=== PATIENT | male | born 1940 | race Two or more races ===

== ENCOUNTER 2018-06-02 08:10 | Day surgery (SDC) | payer MEDICARE, BC ==
[~2018-06-02] VITALS: Ht 167.6 cm; Wt 74.8 kg
[2018-06-02] VITALS (9 sets, daily range): BP systolic 104–140; BP diastolic 47–74
[~2018-06-02 08:10] MED LIST: ASPIR 8181 MG ORAL; LR 1000ml 1,000 ML IVLG SCH
--- NOTE | 2018-06-02 08:28 | Short Stay Surgery H&P ---
History of Present Illness History of Present Illness Chief Complaint Screening colonoscopy MANI Foote is a 77 year old male who was admitted on for Screening Colonoscopy Patient History Allergies: Coded Allergies: IODINATED CONTRAST MEDIA - IV DYE (Verified Allergy, Severe, HOT, RASH, ) HAPPENED DURING AN MRI 3 YEARS AGO AT [facility] PAST MEDICAL HISTORY: (1) Diverticulosis (2) Prostate CA Medication History Scheduled Aspirin* (Aspir 81*), 81 MG ORAL THREE TIMES A WEEK, (Reported) Review of Systems Cardiovascular: Reports: no symptoms Respiratory: Reports: no symptoms Skeletal: Reports: no symptoms Gastrointestinal: Reports: no symptoms Genitourinary: Reports: no symptoms Neurologic: Reports: no symptoms Endocrine: Reports: no symptoms Hematologic: Reports: no symptoms Physical Exam Skin: normal HENT: normal Heart: normal Lungs: normal Abdomen: normal Extremities: normal Genitourinary: normal Plan Plan of Care Total colonoscopy Preop Interventions none Summary of Findings see the report Attestation Are the patient's medical conditions optimized for surgery? Attestation Response: yes Renée Roman MD Jun 02, 2018 08:28
--- NOTE | 2018-06-02 08:29 | Pre-Procedure Note/Attestation ---
Pre-Procedure Note/Attestation Complete Prior to Procedure Planned Procedure: left Procedure Narrative: Examination of the colon via colonoscopy fro cancer/polyps Indications for Procedure Pre-Operative Diagnosis: R/O colon polyp/cancer Attestation I attest that I discussed the nature of the procedure; its benefits; risks and complications; and alternatives (and the risks and benefits of such alternatives ), prior to the procedure, with the patient (or the patient's legal sales representative metals). I attest that, if there was a reasonable possibility of needing a blood transfusion, the patient (or the patient's legal sales representative metals) was given the [facility] standardized written summary, pursuant to the [employer] Blood Safety Act ([place] Health and Safety Code # 1645, as amended). I attest that I re-evaluated the patient just prior to the surgery and that there has been no change in the patient's H&P, except as documented below: Renée Roman MD Jun 02, 2018 08:29
--- NOTE | 2018-06-02 08:36 | Anethesia Preoperative Eval ---
Anesthesia Pre-op PMH/ROS General Date of Evaluation: Jun 02, 2018 Time of Evaluation: 08:33 Anesthesiologist: Lizett Tello CRNA ASA Score: ASA 3 Mallampati Score Class I : Soft palate, uvula, fauces, pillars visible Class II: Soft palate, uvula, fauces visible Class III: Soft palate, base of uvula visible Class IV: Only hard plate visible Mallampati Classification: Class III Surgeon: Isaias Diagnosis: Abdominal pain Surgical Procedure: Diagnostic colonoscopy Anesthesia History: none Social History: smoking Family History: no anesthesia problems Allergies: Coded Allergies: IODINATED CONTRAST MEDIA - IV DYE (Verified Allergy, Severe, HOT, RASH, ) HAPPENED DURING AN MRI 3 YEARS AGO AT [facility] Medications: see eMAR Patient NPO?: Yes NPO Date: Jun 02, 2018 NPO Time: 00:00 Past Medical History Cardiovascular: Reports: HTN; Denies: CAD, [place], valve dz, arrhythmia, other Pulmonary: Denies: asthma, COPD, ANNETTE, other Gastrointestinal/Genitourinary: Reports: other - Prostate cancer s/p prostatectomy; Denies: GERD, CRI, ESRD Neurologic/Psychiatric: Denies: dementia, CVA, depression/anxiety, TIA, other Endocrine: Reports: DM; Denies: hypothyroidism, steroids, other HEENT: Denies: cataract (L), cataract (R), glaucoma, [place] (L), [place] (R), other Hematology/Immune: Reports: other - chronic lower back pain; Denies: anemia, DVT, bleeding disorder Musculoskeletal/Integumentary: Denies: OA, RA, DJD, DDD, edema, other PMH Narrative: as above PSxH Narrative: lumbar surgery, prostatectomy Anesthesia Pre-op Phys. Exam Physician Exam see chart Constitutional: NAD Neurologic: CN 2-12 intact Cardiovascular: RRR Respiratory: CTA Gastrointestinal: S/NT/ND Airway Exam Mallampati Score: Class III MO: full Neck: no limitations TMD: > 3 FB ROM: full Teeth: intact Dentures: no upper, no lower Anesthesia Pre-op A/P Risk Assessment & Plan Assessment: ASA 3, ok to proceed Plan: MAC Status Change Before Surgery: No Pre-Antibiotics Given Within 1 Hr of Incision: Lizett Souza CRNA Jun 02, 2018 08:36
[2018-06-02] MEDS ORDERED: PLAVIX75 MG ORAL (08:54)
[2018-06-02] MEDS ORDERED: Lidocaine 1% MPF 10mg/ml 5ml ONE (09:00)
[2018-06-02] MEDS ORDERED: LR 1000ml ONE (09:00)
[2018-06-02] MEDS ORDERED: Propofol 200mg/20ml IV ONE (09:00)
--- NOTE | 2018-06-02 09:29 | Endoscopy Procedure Note ---
Endoscopy Procedure Note General Indication for Procedure: Screening colon Procedures Performed: colonoscopy - Left colonic diverticulosis otherwise completely normal total colonoscopy. Specimen: none Pt Tolerated Procedure Well: Yes Estimated Blood Loss: none Anesthesia Anesthesiologist: Ms. Omer JASMINE Anesthesia: moderate sedation Medications Medication Given: see anesthesia record Inserted Devices Implant(s) used?: No Quality Quality of Bowel Preparation: Excellent Did scope reach the cecum?: Yes Was there any complications?: No GI Core Measures 50 yrs or older w/o bx or poly: Yes 10yrs. F/U not recommended: Yes 10 yrs. F/U needed: Yes 18 years or older w/prev. colo: No <3yrs. since last colonoscopy: No Med reason:<3 yrs.: System Reason:<3 yrs.: Last colonoscopy >= to 3yrs: Yes Renée Roman MD Jun 02, 2018 09:29
--- NOTE | 2018-06-02 09:30 | Discharge Instructions ---
Discharge Instructions Discharge Instructions Follow up with: No office follow up needed. doctor will speak with family For Congestive Heart Failure Reminder Report to your physician any weight gain of 5 pounds or more in one week. Renée Roman MD Jun 02, 2018 09:30
--- NOTE | 2018-06-02 09:42 | Immediate Post-Op Evaluation ---
Immediate Post-Op Evalulation Immediate Post-Op Evalulation Procedure: Diagnostic Colonoscopy Date of Evaluation: Jun 02, 2018 Time of Evaluation: 09:33 IV Fluids: LR 300 ml Blood Pressure Systolic: 125 Blood Pressure Diastolic: 68 Pulse Rate: 67 Respiratory Rate: 23 O2 Sat by Pulse Oximetry: 98 Temperature (Fahrenheit): 98.4 Pain Score (1-10): 0 Nausea: No Vomiting: No Complications none Patient Status: awake, patent Hydration Status: adequate Given Within 1 Hr of Incision: Lizett Souza CRNA Jun 02, 2018 09:42
--- NOTE | 2018-06-02 11:01 | 48 Hour Post Anesthesia Eval ---
Post Anesthesia Evaluation Procedure: Diagnostic Colonoscopy Date of Evaluation: Jun 02, 2018 Time of Evaluation: 11:00 Blood Pressure Systolic: 131 0: 70 Pulse Rate: 61 Respiratory Rate: 16 Temperature (Fahrenheit): 98. O2 Sat by Pulse Oximetry: 96 Airway: patent Nausea: No Vomiting: No Pain Intensity: 0 Hydration Status: adequate Cardiopulmonary Status: stable Mental Status/LOC: patient returned to baseline Follow-up Care/Observations: per GI Post-Anesthesia Complications: none Follow-up care needed: ready to discharge Lizett Tello CRNA Jun 02, 2018 11:01
--- NOTE | 2018-06-02 15:15 | Operative Note - Dictated ---
DATE OF OPERATION: 06/02/2018 SURGEON: Renée Roman M.D. PROCEDURE: Total colonoscopy PREOPERATIVE DIAGNOSIS: Screening colonoscopy. POSTOPERATIVE DIAGNOSIS: Left colonic diverticulosis, otherwise normal total colonoscopy. MEDICATION USED: By MITALI, Lise Omer. INSTRUMENT: GIF Olympus video colonoscope. DESCRIPTION OF PROCEDURE: The patient after arriving endoscopy unit, was told about risks and benefits of the procedure, which he accepted and signed informed consent. At this time, he was put in the left lateral decubitus position. After adequate IV sedation, the scope was gently advanced towards the anal area and retroflexion of the scope, which was maneuvered here did not reveal any major hemorrhoids or pathology in the whole rectum as well. Subsequently, the scope was passed through rather somewhat redundant left colon reaching towards the splenic flexure. The left side of the colon revealed evidence of diverticular lesions as the patient has had in the past. Finally, the scope was gradually guided into the transverse colon, hepatic flexure, and right colon, all the way to the base of the cecum. All these areas remained to be completely normal without any pathological finding such as polyps, tumors, ulcers, strictures, or colitis etc. The colon cleanup was excellent and approximately within 6 to 7 minutes, the scope was gradually pulled out and there was no other findings except what is stated earlier. The patient tolerated the procedure well and left the endoscopy room in a good condition. Renée Roman M.D. DR: SHANIA JOB#: [id number] CC:
== END 2018-06-02 10:45 | disposition home or self-care (01) ==
LOC: GAS 08:10
DX: Z12.11 Encounter for screening for malignant neoplasm of colon (principal); K57.30 Diverticulosis of large intestine without perforation or abscess without bleeding; E11.9 Type 2 diabetes mellitus without complications; G89.29 Other chronic pain; M54.5 Low back pain; Z79.82 Long term (current) use of aspirin; Z85.46 Personal history of malignant neoplasm of prostate; Z90.79 Acquired absence of other genital organ(s)
CPT/HCPCS: G0121; J2704; 94003; 94150